=== PATIENT | male | born 1965 | race African-American/Black ===

== ENCOUNTER 2017-09-20 11:15 | Inpatient (IN) | payer MEDICAID ==
[2017-09-20] MEDS ORDERED: Aspirin 325 mg EC PO ONE (12:05)
[2017-09-20 12:19] LABS: INR 1.02 (0.5-1.4); PROTHROMBIN TIME (TEST) 10.6 SECONDS (9.5-11.5)
[2017-09-20] MEDS ORDERED: Aspirin 81mg Chewable Tab ONE (12:21)
[2017-09-20 12:50] LABS: ALB/GLOB RATIO 1.6 (1.0-1.8); ALBUMIN 4.2 gm/dL (4.2-5.5); ALKALINE PHOSPHATASE 59 U/L (34-104); ANION GAP 14.7 (7.0-16.0); BILIRUBIN,TOTAL 0.4 mg/dL (0.3-1.0); BUN - UREA NITROGEN 14 mg/dL (7-25); CARBON DIOXIDE 23.1 mEq/L (21.0-31.0); CHLORIDE 103 mEq/L (98-107); CREATININE - SERUM 1.1 mg/dL (0.7-1.3); GFR AFRICAN-AMERICAN > 60.0 ml/min (>90); GFR NON AFRICAN-AMERICAN > 60.0 ml/min; GLUCOSE 132 mg/dL (70-105); MAGNESIUM 2.1 mg/dL (1.9-2.7); PHOSPHOROUS 2.6 mg/dL (2.5-5.0); POTASSIUM SERUM 3.8 mEq/L (3.5-5.1); SGOT 33 U/L (13-39); SGPT/ALT 29 U/L (7-52); SODIUM SERUM 137 mEq/L (136-145); TOTAL PROTEIN,SERUM 6.8 gm/dL (6.0-8.3)
[2017-09-20 12:52] LABS: % BASOPHILS 0.2 % (0.0-2.0); % EOSINOPHILS 0.8 % (0.0-5.0); % MONOCYTES 6.9 % (2.0-10.0); % NEUTROPHILS 41.1 % (40.0-80.0); HEMATOCRIT 47.2 % (41.0-60); HEMOGLOBIN 15.5 gm/dL (12-16); MEAN CORPUSCULAR HEMOGLOBIN 30.7 pg (26.0-30.0); MEAN PLATELET VOLUME 8.3 fl; MONOCYTE ABSOLUTE 0.4 Th/cmm (0.3-1.0); NEUTROPHILE ABSOLUTE 2.4 Th/cmm (1.8-8.0); PLATELET COUNT 196 Th/cmm (150-400); RED BLOOD COUNT 5.07 Mil/cmm (4.30-5.70); RED CELL DISTRIBUTION WIDTH 13.5 % (11.5-20.0); WHITE BLOOD COUNT 5.8 Th/cmm (4.8-10.8)
--- NOTE | 2017-09-20 13:06 | Diagnostic Imaging Report ---
CT scan of the brain without contrast History: Headache Total DLP equals 842 CTDI equals 39.3 Axial sections were obtained from the base of the skull to the vertex. There is a normal ventricular system size. No focal parenchymal lesions are seen. No evidence of any mass effect or shift of midline structures. No extra-axial masses or abnormal fluid collections. Impression: Negative examination
--- NOTE | 2017-09-20 13:06 | Diagnostic Imaging Report ---
Portable chest x-ray History: Cardiac murmur, shortness of breath Allowing for portable technique the heart size is normal. No focal pulmonary parenchymal processes. No hilar or mediastinal abnormalities. Impression: No acute abnormalities.
[2017-09-20 13:20] LABS: URINE SOURCE CLEAN C
[2017-09-20 13:22] LABS: URINE BILIRUBIN NEGATIVE (NEGATIVE); URINE BLOOD NEGATIVE (NEGATIVE); URINE CLARITY CLEAR (CLEAR); URINE COLOR YELLOW; URINE GLUCOSE (UA) NEGATIVE (NEGATIVE); URINE KETONE NEGATIVE (NEGATIVE); URINE LEUKOCYTE ESTERASE NEGATIVE (NEGATIVE); URINE MICROSCOPIC INDICATED? NO; URINE NITRATE NEGATIVE (NEGATIVE); URINE PH 6.5 (4.6 - 8.0); URINE PROTEIN NEGATIVE (NEGATIVE); URINE UROBILINOGEN 0.2 E.U./dL (0.2 - 1.0)
[2017-09-20 13:29] LABS: AMPHETAMINE URINE NEGATIVE (NEGATIVE); BARBITURATES URINE NEGATIVE (NEGATIVE); BENZODIAZEPINES QUAL URINE NEGATIVE (NEGATIVE); CANNABINOID THC POSITIVE (NEGATIVE); COCAINE METABOLITE QUAL URINE NEGATIVE (NEGATIVE); METHADONE URINE NEGATIVE (NEGATIVE); METHAMPHETAMINES QUAL URINE NEGATIVE (NEGATIVE); OPIATES (MORPHINE) QUAL. URINE NEGATIVE (NEGATIVE); PHENCYCLIDINE (PCP) URINE NEGATIVE (NEGATIVE); TRICYCLICS (TCA) QUAL. URINE NEGATIVE (NEGATIVE)
--- NOTE | 2017-09-20 13:35 | ED Physician Chart ---
ED Chief Complaint/HPI - Patient Information Allergies:: Allergies Allergy/AdvReac Type Severity Reaction Status Date / Time No Known Allergies Allergy Verified 09/20/17 11:37 Vitals:: Vital Signs - 8 hr 09/20/17 09/20/17 09/20/17 11:32 11:39 12:57 Temp 97.5 F 98.2 F 98.4 F HR 78 66 70 RR 22 20 18 BP 177/75 144/87 123/78 O2 Sat % 99 97 98 ED Review of Systems - Review of Systems General/Constitutional: No fever, No chills, No weight loss, No weakness, No diaphoresis, No edema, No loss of appetite Skin: No skin lesions, No rash, No bruising Head: Light headed Eyes: No loss of vision, No pain, No diplopia ENT: No earache, No nasal drainage, No sore throat, No tinnitus Neck: No neck pain, No swelling, No thyromegaly, No stiffness, No mass noted Cardio Vascular: No chest pain, No palpitations, No PND, No orthopnea, No edema Pulmonary: No SOB, No cough, No sputum, No wheezing GI: Nausea G/U: No dysuria, No frequency, No hematuria Musculoskeletal: No bone or joint pain, No back pain, No muscle pain Endocrine: No polyuria, No polydipsia Psychiatric: No prior psych history, No depression, No anxiety, No suicidal ideation Hematopoietic: No bruising, No lymphadenopathy Allergic/Immuno: No urticaria, No angioedema Neurological: No syncope, No focal symptoms, No weakness, No paresthesia, No headache, No seizure, Dizziness, No confusion, No vertigo Family Medical History - Family Member Father Hx Family Coronary Artery Disease: Yes Hx Family Stroke: Yes Other Medical History: heart attack ED Physical Exam - Physical Examination General/Constitutional: Awake, Well-developed, well-nourished, Alert, No distress, GCS 15, Non-toxic appearing, Ambulatory Head: Atraumatic Eyes: Lids, conjuctiva normal, PERRL, EOMI Skin: Nl inspection, No rash, No skin lesions, No ecchymosis, Well hydrated, No lymphadenopathy ENMT: External ears, nose nl, Nasal exam nl, Lips, teeth, gums nl Neck: Nontender, Full ROM w/o pain, No JVD, No nuchal rigidity, No bruit, No mass, No stridor Respiratory: Nl effort/Exclusion, Clear to Auscultation, No Wheeze/Rhonchi/Rales Cardio Vascular: RRR, No murmur, gallop, rubs, NL S1 S2 GI: No tenderness/rebounding/guarding, No organomegaly, No hernia, Normal BS's, Nondistended, No mass/bruits, No McBurney tenderness : No CVA tenderness Extremities: No tenderness or effusion, Full ROM, normal strength in all extremities, No edema, Normal digits & nails Neuro/Psych: Alert/oriented, Normal sensory exam, Normal motor strength, Judgement/insight normal, Mood normal, Normal gait, No focal deficits Misc: Normal back, No paraspinal tenderness Other Misc comments:: negative vertigo signs with head movement ED Labs/Radiology/EKG Results - Lab Results Results: Laboratory Tests 09/20/17 09/20/17 09/20/17 11:50 11:50 11:50 WBC 5.8 RBC 5.07 Hgb 15.5 Hct 47.2 MCV 93.0 MCH 30.7 H MCHC Differential 33.0 RDW 13.5 Plt Count 196 MPV 8.3 Neutrophils % 41.1 Lymphocytes % 51.0 H Monocytes % 6.9 Eosinophils % 0.8 Basophils % 0.2 PT INR PTT (Actin FS) D-Dimer Sodium 137 Potassium 3.8 Chloride 103 Carbon Dioxide 23.1 Anion Gap 14.7 BUN 14 Creatinine 1.1 Est GFR ( Amer) > 60.0 Est GFR (Non-Af Amer) > 60.0 BUN/Creatinine Ratio 12.7 Glucose 132 H Calcium 9.0 Phosphorus 2.6 Magnesium 2.1 Total Bilirubin 0.4 AST 33 ALT 29 Alkaline Phosphatase 59 Troponin I 0.01 Total Protein 6.8 Albumin 4.2 Globulin 2.6 Albumin/Globulin Ratio 1.6 Urine Source Urine Color Urine Clarity Urine pH Ur Specific [place] Urine Protein Urine Glucose (UA) Urine Ketones Urine Blood Urine Nitrate Urine Bilirubin Urine Urobilinogen Ur Leukocyte Esterase 09/20/17 09/20/17 09/20/17 11:50 11:50 12:30 WBC RBC Hgb Hct MCV MCH MCHC Differential RDW Plt Count MPV Neutrophils % Lymphocytes % Monocytes % Eosinophils % Basophils % PT 10.6 INR 1.02 PTT (Actin FS) 22.1 L D-Dimer < 100 L Sodium Potassium Chloride Carbon Dioxide Anion Gap BUN Creatinine Est GFR ( Amer) Est GFR (Non-Af Amer) BUN/Creatinine Ratio Glucose Calcium Phosphorus Magnesium Total Bilirubin AST ALT Alkaline Phosphatase Troponin I Total Protein Albumin Globulin Albumin/Globulin Ratio Urine Source CLEAN C Urine Color YELLOW Urine Clarity CLEAR Urine pH 6.5 Ur Specific [place] 1.015 Urine Protein NEGATIVE Urine Glucose (UA) NEGATIVE Urine Ketones NEGATIVE Urine Blood NEGATIVE Urine Nitrate NEGATIVE Urine Bilirubin NEGATIVE Urine Urobilinogen 0.2 Ur Leukocyte Esterase NEGATIVE ED Assessment - Assessment General Assessment: EKG from 11:20:07 a.m.: normal sinus rhythm, nonspecific ST T wave changes including flipped t wave in I, AVL. Assessment/Comments:: patient is no longer nauseated. ED Septic Shock - . Is Septic Shock (SBP<90, OR Lactate>4 mmol\L) present?: No - <6hrs of presentation: Vital Signs: Vital Signs - 8 hr 09/20/17 09/20/17 09/20/17 11:32 11:39 12:57 Temp 97.5 F 98.2 F 98.4 F HR 78 66 70 RR 22 20 18 BP 177/75 144/87 123/78 O2 Sat % 99 97 98 ED Reassessment (Disposition) - Reassessment Reassessment Condition:: Improved - Diagnosis Diagnosis:: Dizziness Nausea Hypertension Hyperlipidemia Recreational marijuana usage - Patient Disposition Discharge/Transfer:: Acute Care w/in this hosp Accepting Physician:: Dr. Grossman Admitted to:: Telemetry
[2017-09-21 06:34] LABS: % EOSINOPHILS 1.1 % (0.0-5.0); % LYMPHOCYTES 32.5 % (20.0-50.0); % MONOCYTES 6.2 % (2.0-10.0); % NEUTROPHILS 59.2 % (40.0-80.0); BASOPHILE ABSOLUTE 0.1 Th/cumm (0-0.2); EOSINOPHILE ABSOLUTE 0.1 Th/cmm (0.1-0.4); HEMATOCRIT 49.4 % (41.0-60); HEMOGLOBIN 16.7 gm/dL (12-16); LYMPHOCYTE ABSOLUTE 2.7 Th/cmm (1.5-3.0); MEAN CELL VOLUME 91.8 fl (80-99); MEAN CORPUSCULAR HEMOGLOBIN 31.1 pg (26.0-30.0); MEAN CORPUSCULAR HGB CONC 33.9 pg (28.0-36.0); MONOCYTE ABSOLUTE 0.5 Th/cmm (0.3-1.0); RED BLOOD COUNT 5.38 Mil/cmm (4.30-5.70); RED CELL DISTRIBUTION WIDTH 13.1 % (11.5-20.0); WHITE BLOOD COUNT 8.4 Th/cmm (4.8-10.8)
[2017-09-21 06:43] LABS: PLATELET COUNT 243 Th/cmm (150-400)
[2017-09-21 06:47] LABS: ALB/GLOB RATIO 1.5 (1.0-1.8); ALBUMIN 3.9 gm/dL (4.2-5.5); ALKALINE PHOSPHATASE 56 U/L (34-104); ANION GAP 10.5 (7.0-16.0); BILIRUBIN,TOTAL 0.4 mg/dL (0.3-1.0); BUN - UREA NITROGEN 13 mg/dL (7-25); CALCIUM SERUM 9.1 mg/dL (8.6-10.3); CHLORIDE 103 mEq/L (98-107); CHOLESTEROL 187 mg/dL (<200); CREATININE - SERUM 1.1 mg/dL (0.7-1.3); GFR AFRICAN-AMERICAN > 60.0 ml/min (>90); GFR NON AFRICAN-AMERICAN > 60.0 ml/min; GLUCOSE 117 mg/dL (70-105); HDL -HIGH DENSITY LIPOPROTEIN 45 mg/dL (23-92); MAGNESIUM 2.1 mg/dL (1.9-2.7); POTASSIUM SERUM 3.5 mEq/L (3.5-5.1); SGOT 27 U/L (13-39); SGPT/ALT 28 U/L (7-52); SODIUM SERUM 136 mEq/L (136-145); TOTAL PROTEIN,SERUM 6.5 gm/dL (6.0-8.3); TRIGLYCERIDES 74 mg/dL (<150)
[2017-09-21] MEDS ORDERED: Aspirin 81mg Chewable Tab PO SCH (09:00)
[2017-09-21] MEDS ORDERED: Atorvastatin Calcium 10 MG TAB PO SCH (09:00)
--- NOTE | 2017-09-21 09:23 | Diagnostic Imaging Report ---
Bilateral carotid Doppler ultrasound exam HISTORY: Stroke, CVA Sonographic sector images were obtained through the carotid bifurcation regions bilaterally. Associated Doppler data was obtained. The exam is technically limited due to tortuosity of the vessels. The exam of the right side demonstrates generalized intimal thickening. No significant focal atherosclerotic plaque is seen. Antegrade vertebral artery flow. Velocities and flow ratios are normal (ICC/CCA equals 0.73). The left side demonstrates generalized intimal thickening. No significant focal plaque identified. Antegrade vertebral artery flow. Velocities and flow ratios are normal (ICA/CCA equals 0.84). IMPRESSION: 1. No evidence of hemodynamically significant atherosclerotic vascular disease
--- NOTE | 2017-09-21 15:53 | Discharge Summary ---
DATE OF DISCHARGE: 09/21/2017 ADMITTING DIAGNOSES: 1. Acute episode of dizziness and palpitations, rule out transient ischemic attack versus cerebrovascular accident. Other Ddx includes vertigo, orthostasis vs. 2ry to alcohol/marijuana usage. 2. Recreational marijuana usage. SECONDARY DIAGNOSES: History of essential hypertension and history of hyperlipidemia. DISCHARGE DIAGNOSES: Acute episode of dizziness and palpitations. Workup was negative for an acute cardiac or neuro event. This was most likely related to marijuana usage in conjunction with alcohol and poor p.o. intake. Clinically improved. CONSULTANTS: There were no consultants used during this admission. MAJOR PROCEDURES: A CT of the brain on admission was negative. There was a carotid arterial ultrasound showing no evidence of hemodynamically significant atherosclerotic vascular disease and a 2D echo, prelim results show an EF of 75%. MEDICATIONS ON DISCHARGE: Aspirin 81 q. day, atorvastatin 10 q. day, lisinopril/hydrochlorothiazide 20/12.5 q. day. BRIEF HOSPITAL COURSE: The patient is a 51-year-old gentleman with the above-mentioned medical history, who was in his usual state of health until yesterday when he apparently woke up feeling dizzy, shaky and also with some palpitations. He decided to come into the ED given that the symptoms did not improve and was admitted overnight for neuro and cardiac workup. He denied any similar previous episodes and on further questioning, he stated that on the weekend--2 days prior to admission, he had poor p.o. intake, consumed alcohol and smoked some pot. He was admitted for further management and workup. Since been admitted, his symptoms have subsided, and he is no longer complaining of dizziness or palpitations. DISPOSITION: The patient was discharged home to self-care. I instructed the patient to follow up with his primary care doctor in the next 3-5 days. Advice on avoiding binge drinking and using recreational use of marijuana. Also advice patient on having regular meals. JOB# [id number] NATTY
--- NOTE | 2017-09-21 16:30 | History & Physical ---
ADMIT DATE: 09/20/2017 CHIEF COMPLAINT: Dizziness, nausea and palpitations. HISTORY OF PRESENT ILLNESS: The patient is a 51-year-old -[place] gentleman with a history of essential hypertension and hyperlipidemia who was in his usual state of health until yesterday when he started feeling extremely dizzy and somewhat nauseated as he got up to go to work. Apparently in the weekend, he had poor p.o. intake and does admit to drinking alcohol, i.e. vodka and smoking marijuana. He felt well when he went to sleep, but as noted above when he woke up he felt extremely dizzy and shaky and had some palpitations. He was then taken to the ED where he was evaluated and has been admitted for further management and care. PAST MEDICAL HISTORY: As noted above. PAST SURGICAL HISTORY: None. FAMILY HISTORY: Noncontributory. SOCIAL HISTORY: He states that he drinks socially, specifically on the weekends and he smokes marijuana occasionally. He denies any illicit drug usage. He denies any cigarette smoking. ALLERGIES: NKDA. OUTPATIENT MEDICATIONS: Aspirin 81 every day, atorvastatin 10 every day, lisinopril/hydrochlorothiazide 20/12.5 every day. REVIEW OF SYSTEMS: CONSTITUTIONAL: Denies any syncopal episode. Denies fever, chills, any recent weight loss. CARDIOVASCULAR: Palpitations briefly felt during the episode, but no angina type symptomatology. No chest pain. PULMONARY: No cough or phlegm production. No shortness of breath. GASTROINTESTINAL: Nauseated, but denies any vomiting. No diarrhea. No abdominal pain. GENITOURINARY: No bladder habit changes. NEUROLOGIC: Please refer to the HPI. He denies any syncope or syncopal episodes. He denies any previous similar episodes. No headaches. No changes in vision. PHYSICAL EXAMINATION: VITAL SIGNS: Temperature 97.8, pulse 52-64, respirations 18, blood pressure 123/78, satting 97-98% on room air. GENERAL: Well-developed, well-nourished male, not in acute distress, speaking in full sentences. He is awake, alert and oriented x 3. HEAD AND NECK: Normocephalic, atraumatic. Pupils reactive to light. Extraocular movements are intact. Oropharynx moist and clear. CARDIAC: Regular rate and rhythm without any murmurs. LUNGS: Clear to auscultation bilaterally. ABDOMEN: Soft, supple, nontender, nondistended. Normoactive bowel sounds. EXTREMITIES: Lower extremity has no pedal edema. NEUROLOGIC: Grossly intact, nonfocal. Cranial nerves 2-12 are within normal limits. He is able to move all 4 extremities with equal force and strength and sensation is intact. LABORATORY DATA: CBC was essentially within normal limits. Chem-20 was essentially within normal limits. There was a glucose level of 132. Cholesterol panel shows an LDL of 132, HDL 45, total cholesterol of 187 and triglyceride level of 74. UA was essentially within normal limits. Urine tox was positive for cannabinoids. DIAGNOSTIC DATA: Head CT was negative. Chest x-ray shows no acute abnormalities. EKG shows sinus rhythm at a rate of 77. There are no obvious ST elevations or depressions. IMPRESSION: 1. Acute episode of dizziness with palpitations. Differential diagnosis - most likely this is a combination of acute weakness 2ry marijuana use in conjunction with alcohol and poor p.o. intake. Other potentials include cardiac versus neuro event. 2. Essential hypertension. 3. History of hyperlipidemia. 4. Recreational marijuana use. PLAN: The patient has been admitted to [facility] for further management and care. I have asked for a 2D echo and a carotid ultrasound to be done and the patient has been placed on aspirin and will be kept on his other medications. MRI of the brain will also be asked for as well as a neuro eval. JOB# [id number] NATTY
--- NOTE | 2017-09-21 18:32 | Cardiology ---
09/21/2017 PATIENT OF: Dr. Grossman. M-MODE ECHOCARDIOGRAM: Mitral valve, anterior leaflet of mitral valve shows normal excursion, EF velocity. Posterior leaflet of mitral valve shows normal excursion. Left ventricular posterior wall shows increased thickness, normal excursion. Interventricular septum shows increased thickness, normal excursion, hypertrophy of the left ventricle, ejection fraction 75%. Left atrium normal. Aortic root shows normal dimension, normal excursion of aortic leaflets. CONCLUSION: Hypertrophy of the left ventricle, ejection fraction 43%. 2D ECHO: Long axis view showed normal sized left ventricle with hypertrophy of the left ventricle. Left atrium normal. Aortic root shows normal dimension, normal excursion of aortic leaflets. Short axis view of mitral valve normal. Short axis view of aortic valve normal. Apical four chamber view showed normal sized left ventricle with hypertrophy of the left ventricle. Left atrium normal. Right ventricular cavity, right atrium normal, no pericardial effusion. CONCLUSION: Hypertrophy of the left ventricle, ejection fraction 75%. Doppler study showed trace mitral regurgitation, trace tricuspid regurgitation, trace pulmonary regurgitation. JOB# [id number]
[2017-09-21 19:24] LABS: A1C % 6.9 % (4.0-6.0)
== END 2017-09-21 13:24 | disposition home or self-care (01) | DRG 111 ==
LOC: ER 11:15 → TELE 14:04
PROVIDERS: ADMIT Internal Medicine; ATTEND Internal Medicine
DX: R42 Dizziness and giddiness (principal); E78.5 Hyperlipidemia, unspecified; F15.99 Other stimulant use, unspecified with unspecified stimulant-induced disorder; F12.90 Cannabis use, unspecified, uncomplicated; I10 Essential (primary) hypertension; R11.0 Nausea; R00.2 Palpitations; Z82.3 Family history of stroke; Z82.49 Family history of ischemic heart disease and other diseases of the circulatory system
CPT/HCPCS: 36415-UA; 70450-TC; 71045-TC; 80053-TC; 80061-TC; 80307; 81003-TC; 83036-90; 83735-TC; 84100-TC; 84443-TC; 84484-TC; 85025-TC; 85379-TC; 85610-TC; 93005; 93307-TC; 93880-TC; 96374; J2405; Z7610